=== PATIENT | male | born 1955 | race Caucasian/White ===

== ENCOUNTER 2024-01-07 17:25 | Emergency (ER) | payer MEDICARE, OTHER, SELFPAY ==
--- NOTE | ~2024-01-07 | XR_ITS ---
EXAMINATION: XR SHOULDER, LEFT CLINICAL INFORMATION: Left shoulder pain COMPARISON: None available. TECHNIQUE: Three views of the left shoulder. FINDINGS: Multiple anterior labral repair anchors. There is severe glenohumeral osteoarthritis with degenerative sclerosis, marginal osteophytes, and articular surface remodeling. No acute fracture or malalignment. XR/XR shoulder LT min 2V IMPRESSION: Severe glenohumeral osteoarthritis. No acute osseous abnormality.
[2024-01-07 17:53] VITALS: BP 106/77; PULSE 85; RESP 16; TEMP 36.8; O2SAT 95; BMI 28.9
--- NOTE | 2024-01-07 18:06 | ED.EXTPRO ---
HPI - Extremity Problem General Chief complaint: Extremity Problem Stated complaint: L shoulder pain Time Seen by Provider: 01/07/24 22:28 Related Data Allergies Allergy/AdvReac Type Severity Reaction Status Date / Time No Known Allergies Allergy Verified 01/07/24 17:55 [No Known Allergies*] PMFSH Social History Social History Advance Directives: No Advance Directives Information Provided: No Do you have a plan to hurt others: No Plan Physical Exam Vital Signs: Vital Signs: Last Vital Signs Temp 97.0 F 01/07/24 20:51 Pulse 71 01/07/24 20:51 Resp 16 01/07/24 20:51 BP 125/86 01/07/24 20:51 Pulse Ox 97 01/07/24 20:51 O2 Del Method Room Air 01/07/24 20:51 BMI result Body Mass Index 28.9 Course Course Course Narrative: This is an RME done by CECILE Wells: Additional HPI, ROS, PE not included below will be deferred to primary provider. 68 yo m presents w/ atraumatic L sholder pain hx of surgery on this shoulder. worse w/ movment better at rest pain >10. PE painful rom of left shoulder difficult to access strength due to this Discharge Plan Discharge Clinical Impression: Eloped from emergency department Patient Disposition: Left W/O Completing Treatment Discharge Date/Time: 01/07/24 22:30
--- OUTSIDE RECORDS SUMMARY | 2024-01-07 19:45 | XMS_ITS | Continuity of Care Document ---
Author Organization [facility] Address [address] [place] [address]- Care Team Providers Care Customer Service Receptionist Name Role Phone Carlos Manuel Maribel Donahue DO Primary Care Jordan luna Encounter [facility] [place] Date(s): 07/07/19 - 09/30/19 [facility] [address] [place] [address]- [facility] Attending Physician: Rafia Braun MD Admitting Physician: Rafia Braun MD Allergies, Adverse Reactions, Alerts Substance Reaction Severity Status NKA Active Medications albuterol 2.5mg / 3mL (0.083%) (OP) 3 mL = 2.5 mg, Neb, Every 6 hours, PRN as needed for wheezing, # 90 mL, 0 Refills, Maintenance Start Date: 05/15/19 Status: Ordered Lorazepam Tablet 1, mg, By Mouth, 3 times a day, 42, 0, 0, 02/13/08 13:06:47, Print PATRICK Number, ADS OPPTHS, 68 Start Date: 02/13/08 Stop Date: 02/27/08 Status: Ordered Oxycodone IR Tablet 5, mg, By Mouth, Every 6 hours, Scheduled / PRN, 20, 0, 0, 02/13/08 13:07:53, Pain , Moderate, Print PATRICK Number, ADS OPPTHS, [id number] Start Date: 02/13/08 Stop Date: 02/20/08 Status: Ordered paroxetine 10 mg oral tablet 10, mg, 1, tablet, By Mouth, Daily, 30, tablet, 0, 02/13/08 13:06:23, Print PATRICK Number, ADS OPPTHS,[id number] Start Date: 02/11/08 Stop Date: 03/14/08 Status: Ordered ProAir HFA 90 mcg/inh inhalation aerosol with adapter 2, puffs, Inhalation, Every 4 hours, PRN, # 8.5 Gm, Refills 0, Maintenance, 05/15/19 16:27:33 EST, Aerosol Start Date: 05/15/19 Status: Ordered
--- OUTSIDE RECORDS SUMMARY | 2024-01-07 19:45 | XMS_ITS | Patient Health Record ---
Author Organization [facility] Address [address] [address] Care Team Providers Care Product Development Actuary Name Role Phone Lisa Koo Unavailable [phone] ALLERGIES Allergen (clinical drug ingredient) Drug/Non Drug Allergy documented on EMR Reaction Allergy Type Onset Date Status Seasonale Unknown Drug Allergy Active REASON FOR REFERRAL No Information MEDICATIONS Medication SIG (Take, Route, Frequency, Duration) Notes Start Date End Date Status Citalopram Hydrobromide 40 MG 0.5 tablet Orally Once a day for 30 day(s) Active oxyCODONE HCl 5 as directed Orally e very 6 hrs Active SOCIAL HISTORY Tobacco Use: Social History Observation Description Date Details (start date - stop date) Former Smoker NA - NA Sex Assigned At : Social History Observation Description Sex Assigned At Unknown Tobacco Use/Smoking Question Answer Notes Are you a: former smoker Additional Findings: Tobacco Non-User Current no n-smoker Alcohol Screen Question Answer Notes Did you have a drink containing alcohol in the p ast year? No Points 0 Interpretation Negative Tobacco use other than smoking: Question Answer Notes Are you an other tobacco user? No PLAN OF TREATMENT No Information Insurance Providers Payer Name Payer Address Payer Phone Subscriber Number Group Number Insured Name Patient Relationship to Insured Coverage Start Date Coverage End Date [facility] [address] [place] [id number] Fabio Kong Self - patient is the insured MEDICAL (GENERAL) HISTORY Medical History History ICD Code Anxiety Arthritis asthma Back,Hip,and Knee pain Depression nerve disorder Numbness Stroke Chicken pox Joint implants/screws Surgical History Surgery Date(Month/Year) shoulder replacement
--- OUTSIDE RECORDS SUMMARY | 2024-01-07 19:45 | XMS_ITS | Continuity of Care Document ---
Author Organization [facility] Address [address] [place] [address]- Care Team Providers Care Floor Covering Contractor Name Role Phone Carlos Manuel Maribel Donahue DO Primary Care Jordan luna Encounter [facility] [place] Date(s): 10/09/19 - 10/19/19 [facility] [address] [place] [address]- [facility] Attending Physician: Admtr, Ar8 Admitting Physician: Admtr, Ar8 Referring Physician: Admtr, Ar8 Allergies, Adverse Reactions, Alerts Substance Reaction Severity [...] 0, 02/13/08 13:06:23, Print PATRICK Number, ADS OPPTHS,[id number] Start Date: 02/11/08 Stop Date: 03/14/08 Status: Ordered ProAir HFA 90 mcg/inh inhalation aerosol with adapter 2, puffs, Inhalation, Every 4 hours, PRN, # 8.5 Gm, Refills 0, Maintenance, 05/15/19 16:27:33 EST, Aerosol Start Date: 05/15/19 Status: Ordered
--- OUTSIDE RECORDS SUMMARY | 2024-01-07 19:45 | XMS_ITS | Continuity of Care Document ---
Author Organization [facility] Address [address] [place] [address]- Care Team Providers Care Bottom Worker Name Role Phone Maribel Gresham DO Primary Care Jordan luna Encounter [facility] [place] Date(s): 12/05/20 - 02/01/21 [facility] [address] [place], [place] [address] Attending Physician: Radha Hector MD Admitting Physician: Radha Hector MD Referring Physician: Maribel Gresham DO Allergies, Adverse Reactions, Alerts Substance Reaction Severity Status ibuprofen constipation Active Medications albuterol 2.5mg / 3mL (0.083%) (OP) 3 mL = 2.5 mg, Neb, Every 6 hours, PRN as needed for wheezing, # 90 mL, 0 Refills, Maintenance Start Date: 05/15/19 Status: Ordered celecoxib 100 mg oral capsule 1 capsule = 100 mg, By Mouth, 2 times a day, # 180 capsule, 0 Refills, Maintenance, 10/18/20 11:05:00 EDT, Capsule, Partial fill upon patient request if the prescription is for a schedule II opioid drug. Start Date: 10/18/20 Status: Ordered citalopram 40 mg oral tablet 1 tablet = 40 mg, By Mouth, Daily, 0 Refills, Maintenance, 10/18/20 11:04:00 EDT, Partial fill uponpatient request if the prescription is for a schedule II opioid drug. Start Date: 10/18/20 Status: Ordered Misc Rx Nares, Both, Daily, Refills 0, Maintenance, nasal spray, 10/18/20 11:27:00 EDT, Supply Start Date: 10/18/20 Status: Ordered montelukast 10 mg oral tablet 10 mg, 1, tablet, By Mouth, Daily, Refills 0, Maintenance, 10/18/20 11:27:00 EDT, Partial fill uponpatient request if the prescription is for a schedule II opioid drug. Start Date: 10/18/20 Status: Ordered oxyCODONE 5 mg oral capsule 1 capsule = 5 mg, By Mouth, Every 4 hours, PRN for pain, 0 Refills, Maintenance, 10/18/20 10:56:00 EDT, Capsule, Partial fill upon patient request if the prescription is for a schedule II opioid drug. Start Date: 10/18/20 Status: Ordered ProAir HFA 90 mcg/inh inhalation aerosol with adapter 2, puffs, Inhalation, Every 4 hours, PRN, # 8.5 Gm, Refills 0, Maintenance, 05/15/19 16:27:33 EST, Aerosol Start Date: 05/15/19 Status: Ordered
--- OUTSIDE RECORDS SUMMARY | 2024-01-07 19:45 | XMS_ITS | Continuity of Care Document ---
Author Organization [facility] Address [address] [place] [address]- Care Team Providers Care Emd Teacher Name Role Phone Carlos Manuel Maribel Donahue DO Primary Care Jordan luna [place] [facility] [place]15[place]20 - 02/14/20 [facility] [address] [place] [address] Allergies, Adverse Reactions, Alerts Substance Reaction Severity [...] 0, 02/13/08 13:06:23, Print PATRICK Number, ADS OPPTHS,[id number] Start Date: 02/11/08 Stop Date: 03/14/08 Status: Ordered ProAir HFA 90 mcg/inh inhalation aerosol with adapter 2, puffs, Inhalation, Every 4 hours, PRN, # 8.5 Gm, Refills 0, Maintenance, 05/15/19 16:27:33 EST, Aerosol Start Date: 05/15/19 Status: Ordered
--- OUTSIDE RECORDS SUMMARY | 2024-01-07 19:45 | XMS_ITS | Continuity of Care Document ---
Author Organization [facility] Address [address] [place] [address]- Care Team Providers Care Technician Test Systems Name Role Phone Carlos Manuel aMribel Donahue DO Primary Care Jordan luna Encounter [facility] [place] Date(s): 08/31/19 - 09/10/19 [facility] [address] [place] [address]- [facility] Attending Physician: Admtr, Ar8 Admitting Physician: Admtr, [...] 0, 02/13/08 13:06:23, Print PATRICK Number, ADS OPPTHS,[id number] Start Date: 02/11/08 Stop Date: 03/14/08 Status: Ordered ProAir HFA 90 mcg/inh inhalation aerosol with adapter 2, puffs, Inhalation, Every 4 hours, PRN, # 8.5 Gm, Refills 0, Maintenance, 05/15/19 16:27:33 EST, Aerosol Start Date: 05/15/19 Status: Ordered
--- OUTSIDE RECORDS SUMMARY | 2024-01-07 19:45 | XMS_ITS | Continuity of Care Document ---
Author Organization [facility] Address [address] [place] [address]- Care Team Providers Care Resident Assistant Name Role Phone Carlos Manuel Rowan HANDY Maribel Primary Care Jordan luna Encounter [facility] [place] Date(s): 01/02/21 - 02/01/21 [facility] [address] [place], [place] [address] Attending Physician: Cristiano Vasquez Admitting Physician: AdmtrCristiano Referring Physician: Admtr, Ar8 Allergies, Adverse Reactions, [...]
[2024-01-07 20:51] VITALS: BP 125/86; PULSE 71; RESP 16; TEMP 36.1; O2SAT 97
== END 2024-01-07 22:30 | disposition left against medical advice (07) ==
PROVIDERS: Emergency Provider Emergency Medicine
DX: M25.512 Pain in left shoulder (principal)
CPT/HCPCS: 73030; 99283